=== PATIENT | female | born 1980 | race Caucasian/White ===

== ENCOUNTER 2023-05-11 06:30 | Day surgery (SDC) | payer OTHER ==
[2023-05-10 16:30] VITALS: BP 128/78
[~2023-05-11] VITALS: Ht 157.5 cm; Wt 103.6 kg
[~2023-05-11 06:30] MED LIST: DAILY VALUE1 EACH PO; IRON325 M1 PO; MELOXICAM15 MG PO; METHOCARBAMOL500 MG PO; NAPROXEN500 MG PO; OMEPRAZOLE40 MG PO; PHENTERMINE HCL15 MG PO; TENORMIN25 MG PO
[2023-05-11 06:50] VITALS: BP 131/98
[2023-05-11] MEDS ORDERED: HYDROCODON-ACE1 EA10 PO (08:04)
--- NOTE | 2023-05-11 08:12 | NUR ---
05/11/23 0812 Rubina Wills PT TO PACU AWAKE ON ROOM AIR. DENIES PAIN AND NAUSEA.
[2023-05-11 08:31] VITALS: BP 114/70
--- NOTE | 2023-05-14 07:16 | OR ---
[facility] [address] [place], [place] [address] Signed DATE OF OPERATION: 05/11/2023 SURGEON: Ene Wills MD PREOPERATIVE DIAGNOSIS: Carpal tunnel syndrome, right. POSTOPERATIVE DIAGNOSIS: Carpal tunnel syndrome, right. PROCEDURE PERFORMED: Carpal tunnel release, right. CIRCULATION REPRESENTATIVE: None. ANESTHESIA: Sivan block. TOURNIQUET TIME: 20 minutes. BRIEF HISTORY: Marilia is a 43-year-old female with progressive worsening pain and numbness in her hand. She had undergone nerve conduction studies, which confirmed carpal tunnel. Nonoperative treatment was ineffective and she wished to proceed with operative release. Risks, benefits, and alternatives were discussed and she understood, wished to proceed. DESCRIPTION OF PROCEDURE: Once consent was obtained, she was taken to the operating room. After adequate anesthesia, she was placed on the operating room table. All downside pressure points were well padded. The right arm was prepped and draped in a standard sterile fashion and the carpal tunnel was approached through a 1.5 cm incision in the distal wrist crease, it was carried down to the transverse carpal ligament under loupe magnification. The ligament was then dissected free of overlying soft tissue. It was released proximally a cm and distally to the distal extent. The complete release was confirmed using the Cleveland elevator. The wound was then copiously irrigated with normal saline, closed with 3-0 nylon. The volar wrist was injected with 7 mL of 0.25% plain Marcaine. Wound was then dressed with bacitracin, Adaptic, 4 x 8s, and gauze. She tolerated the procedure well. Electronically Signed By: ENE WILLS MD 05/14/23 0716 PATIENT NAME: MARILIA RICHARDS OPERATIVE REPORT DATE OF : 82 REPORT #: [id number] PHYSICIAN: ENE WILLS MD PCP: REESE MUÑOZ PAC REPORT IS CONFIDENTIAL AND NOT TO BE RELEASED WITHOUT AUTHORIZATION [facility] [address] [facility] [place], [place] [address] Signed All sponge, needle, and instrument counts were correct. Ene Wills MD BA/ZULYL /[id number] Copies: ~ Electronically Signed By: ENE WILLS MD 05/14/23 0716 PATIENT NAME: MARILIA RICHARDS OPERATIVE REPORT DATE OF : 82 REPORT #: [id number] PHYSICIAN: ENE WILLS MD PCP: REESE MUÑOZ PAC REPORT IS CONFIDENTIAL AND NOT TO BE RELEASED WITHOUT AUTHORIZATION
== END 2023-05-11 08:45 | disposition home or self-care (01) ==
LOC: DS 06:30 → OPS 06:30 → DS 07:00 → OPS 07:55 → DS 09:15 → OPS 09:30
PROVIDERS: ATTEND Specialist
PROC: 01N50ZZ Release Median Nerve, Open Approach (ICD-10-PCS; principal; 2023-05-11 07:55)
DX: G56.03 Carpal tunnel syndrome, bilateral upper limbs (principal); I10 Essential (primary) hypertension; K21.9 Gastro-esophageal reflux disease without esophagitis
CPT/HCPCS: 01810; J1885; J2250; J2704; J3490; J7121

== ENCOUNTER 2023-06-29 07:35 | Day surgery (SDC) | payer OTHER ==
[2023-06-28 11:19] VITALS: BP 145/89
[~2023-06-29] VITALS: Ht 157.5 cm; Wt 103.6 kg
[~2023-06-29 07:35] MED LIST changes: +HYDROCODON-ACE1 EA10 PO
[2023-06-29 07:53] VITALS: BP 116/96
--- NOTE | 2023-06-29 08:16 | NUR ---
PT REPORTS SHE DID NOT TAKE HER ATENOLOL SINCE SUNDAY SHE READ THE INSTRUCTIONS FOR SURGERY WRONG. PT TAKES THIS MEDICATION FOR RATE CONTROL. SARAH BETH VILLALTA CRNA NOTIFIED OF THIS. NEW ORDER RECEIVED.
--- NOTE | 2023-06-29 08:36 | NUR ---
PT PLACED ON THE CONTINUOUS PULSE OX AND BP TAKEN. PARAMETER WNL FOR LOPRESSOR ADMINISTRATION. PT LEFT ON CONTINUOUS PULSE OX. PT'S FATHER AT THE BEDSIDE. CALL LIGHT WITH PT.
[2023-06-29 08:40] VITALS: BP 113/69
--- NOTE | 2023-06-29 08:41 | NUR ---
PT REPORTS SHE IS NOT DIZZY AFTER MEDICATION ADMINISTRATION.
[2023-06-29 08:56] VITALS: BP 117/72
[2023-06-29] MEDS ORDERED: HYDROCODON-ACE1 EA10 PO (10:13)
--- NOTE | 2023-06-29 10:31 | NUR ---
06/29/23 Panfilo1 Rubina Wills 1017 PT TO PACU SLEEPING O2 ON VIA MASK, FOGGING NOTED IN MASK.
[2023-06-29 10:43] VITALS: BP 122/67
--- NOTE | 2023-06-29 10:47 | NUR ---
PT ARRIVES BACK TO DAY SURGERY ROOM #5 AWAKE ALTHOUGH DROWSY. PT REPORTS LEFT WRIST PAIN AND RATES IT A 5/10. PT WOULD LIKE SOME PAIN MEDICATION FOR THIS. PT PROVIDED APPLE SAUCE, CRACKERS, AND WATER. EDUCATED PT EAT SOMETHING FOR THE PAIN PILL. PT STATES UNDERSTANDING. BED IN THE LOWEST POSITION, BED RAIL UP X1, CALL LIGHT PROVIDED, PT'S FATHER AT THE BEDSIDE.
--- NOTE | 2023-06-29 11:34 | NUR ---
PT REPORTS THIS CARPAL TUNNEL RELEASE IS "MUCH DIFFERENT" THIS TIME WITHOUT HAVING THE NERVE BLOCK. PT STATES HER PAIN IS 3/10 AND THAT IT IS TOLERABLE FOR HER. SARAH BETH VILLALTA CRNA AND DR. WATSON NOTIFIED OF THIS. PT UP ON THE EDGE OF THE BED. PT REPORTS NO DIZZINESS OR NAUSEA. PT ABLE TO AMBULATE TO THE RESTROOM AND BACK TO BED. PT AGREEABLE WITH WANTING TO GO HOME. PT DRESSING HERSELF. TOLERATING WELL.
[2023-06-29 11:44] VITALS: BP 137/78
--- NOTE | 2023-06-29 11:50 | NUR ---
DC INSTRUCTIONS PROVIDED TO PT AND PT'S FATHER. ALL QUESTIONS ANSWERED. PT REPORTS PAIN A 3/10. STATES THIS IS TOLERABLE FOR HER. DENIES NAUSEA OR DIZZINESS. PT ABLE TO AMBULATE TO THE WHEELCHAIR. ICE PACKS PROVIDED FOR HOME. PT TAKEN TO THE FRONT OF THE HOSPITAL. PT ABLE TO GET INTO THE PASSENGER SIDE OF THE VEHICLE BY HERSELF. TOLERATED WELL. PT THANKFUL FOR HER CARE.
--- NOTE | 2023-07-02 07:02 | OR ---
[facility] [address] [place], [place] [address] Signed DATE OF OPERATION: 06/29/2023 SURGEON: Ene Wills MD PREOPERATIVE DIAGNOSIS: Carpal tunnel syndrome, left. POSTOPERATIVE DIAGNOSIS: Carpal tunnel syndrome, left. PROCEDURE PERFORMED: Left carpal tunnel release. CONSTRUCTION DRILLER: None. ANESTHESIA: General. TOURNIQUET TIME: 5 minutes. BRIEF HISTORY: Marilia is a 43-year-old female with bilateral carpal tunnel. She had undergone successful right release and wished to proceed with the left. Risks, benefits, and alternatives were discussed with her and she elected to proceed. DESCRIPTION OF PROCEDURE: Once consent was obtained, she was taken to the operating room. After adequate anesthesia, she was left on the day surgery bed. The hand table was brought in and the arm was placed in a well-padded proximal forearm tourniquet. The arm was then prepped and draped in a standard sterile fashion, exsanguinated using Esmarch bandage. Tourniquet inflated to 200 mmHg. Standard and transverse incision was made in the distal wrist crease carried through the skin and subcutaneous tissue. Under loupe magnification, soft tissue was dissected free off the palmar ligament and it was released proximally a cm and distally to the distal extent. This was carefully palpated using a Lincoln and complete release was ensured. The wound was then copiously irrigated with normal saline, closed with 3-0 nylon and injected with 7 mL of 0.25% plain Marcaine. The wound was then dressed with bacitracin, Adaptic, 4 x 8s, and gauze. She tolerated the Electronically Signed By: ENE WILLS MD 07/02/23 0702 PATIENT NAME: MARILIA RICHARDS OPERATIVE REPORT DATE OF : 82 REPORT #: [id number] PHYSICIAN: ENE WILLS MD PCP: REESE MUÑOZ PAC REPORT IS CONFIDENTIAL AND NOT TO BE RELEASED WITHOUT AUTHORIZATION [facility] [address] [facility] [place], [place] [address] Signed procedure well. All sponge, needle, and instrument counts were correct. Ene Wills MD BA/ZULYL /[id number] Copies: ~ Electronically Signed By: ENE WILLS MD 07/02/23 0702 PATIENT NAME: MARILIA RICHARDS OPERATIVE REPORT DATE OF : 82 REPORT #: [id number] PHYSICIAN: ENE WILLS MD PCP: REESE MUÑOZ PAC REPORT IS CONFIDENTIAL AND NOT TO BE RELEASED WITHOUT AUTHORIZATION
== END 2023-06-29 11:50 | disposition home or self-care (01) ==
LOC: OPS 07:35 → DS 07:35 → OPS 09:55
PROVIDERS: ATTEND Specialist
PROC: 01N50ZZ Release Median Nerve, Open Approach (ICD-10-PCS; principal; 2023-06-29 09:55)
DX: G56.03 Carpal tunnel syndrome, bilateral upper limbs (principal); I10 Essential (primary) hypertension; K21.9 Gastro-esophageal reflux disease without esophagitis; Z88.0 Allergy status to penicillin; Z88.2 Allergy status to sulfonamides; Z79.899 Other long term (current) drug therapy
CPT/HCPCS: 84703; J0131; J1100; J1885; J2001; J2405; J2704; J7121

== ENCOUNTER 2023-08-07 07:23 | Day surgery (SDC) | payer OTHER ==
[~2023-08-07] VITALS: Ht 157.5 cm; Wt 110.9 kg
[~2023-08-07 07:23] MED LIST changes: +COLLAGEN-VIT C1 EACH PO
[2023-08-07 07:44] VITALS: BP 112/60
[2023-08-07] MEDS ORDERED: TYLENOL325 MG PO (07:48)
--- NOTE | 2023-08-07 08:51 | NUR ---
08/07/23 0851 Gini Moralez 7926 PT ARRIVED TO PACU ON RA AND PT WAKES AND TALKING TO RN. PT DENIES CONCERNS. PLAN OF CARE DISCUSSED. PT EASILY FALLS BACK TO SLEEP.
[2023-08-07 09:01] VITALS: BP 95/58
--- NOTE | 2023-08-07 09:55 | OR ---
[facility] [address] [place], [place] [address] Signed DATE OF OPERATION: 08/07/2023 SURGEON: Radha Farley MD PREOPERATIVE DIAGNOSES: 1. Gastroesophageal reflux disease. 2. Anemia. 3. NSAIDs. POSTOPERATIVE DIAGNOSES: 1. Small hiatal hernia. 2. GE junction at 34 cm. 3. Mild distal gastritis. PROCEDURE: EGD with CLOtest and biopsies of the antrum at GE junction. ESTIMATED BLOOD LOSS: None. INDICATIONS: Marilia is a 43-year-old obese female, asked to see me for upper endoscopy. She spoke of acid reflux for many years. She said her acid reflux was terrible during the . She has also gained some weight in the last few years and that has not helped. She has been on meloxicam and Advil as well. She has increased the Prilosec to 40 mg once a day. She is also little anemic according to her progress notes. She is apparently going to give a Cologuard stool sample. She was asked to see me for upper endoscopy. In the office, I gave her a pamphlet on upper endoscopy. We had reviewed the nature of the test. There is risk including, but not limited to gas bloating, crampy abdominal pain, bleeding, perforation requiring surgery, and missed diagnosis. We also discussed the need for IV conscious sedation. She had expressed understanding and wished to proceed. DESCRIPTION OF PROCEDURE: Marilia was taken into our endoscopy suite and placed in the supine semi-recumbent position. The posterior oropharynx was anesthetized with Hurricaine spray. A bite block was utilized throughout the case. She was given 6 mg of Versed and 100 mcg of fentanyl to cover the case. The adult gastroscope was introduced and advanced out into the third portion of the duodenum. The duodenum and pyloric channel were unremarkable. She had very mild erythematous changes in the distal portion of the stomach. We went Electronically Signed By: RADHA FARLEY MD 08/07/23 0955 PATIENT NAME: MARILIA RICHARDS OPERATIVE REPORT DATE OF : 82 REPORT #: [id number] PHYSICIAN: RADHA FARLEY MD PCP: REESE MUÑOZ [facility] REPORT IS CONFIDENTIAL AND NOT TO BE RELEASED WITHOUT AUTHORIZATION [facility] [address] [place] [address] Signed ahead and took a biopsy of the antrum for CLOtest as well as pathologic review. There were no ulcerations. Upon retroflexion of the scope, I can see she has just a very tiny hiatal hernia with a little bit of her stomach coming on the one side. The scope was withdrawn up through the area of the GE junction, which was compliant without stricture. We could see the mildly disrupted Z-line at about 34 cm. There was no Wilks's mucosa. No distal esophagitis. We went ahead and took a biopsy along the edge of the Z-line. Her middle and upper esophagus were unremarkable. After this, the gas was suctioned out and the gastroscope removed. Marilia tolerated the procedure quite well. RECOMMENDATIONS: I will see Marilia back in my office in 7 to 14 days to review her results. Radha Farley MD ALB/MODL /[id number] cc: LADAN Slater MD Copies: REESE MUÑOZ ANDREW L MD ~ Electronically Signed By: RADHA FARLEY MD 08/07/23 0955 PATIENT NAME: MARILIA RICHARDS OPERATIVE REPORT DATE OF : 82 REPORT #: [id number] PHYSICIAN: RADHA FARLEY MD PCP: REESE MUÑOZ REPORT IS CONFIDENTIAL AND NOT TO BE RELEASED WITHOUT AUTHORIZATION
--- NOTE | 2023-08-10 14:56 | PATH ---
[facility] [address] [place], [place] [address] Signed THIS IS AN ADDENDUM REPORT SPECIMEN(S): A ANTRUM BIOPSY SPECIMEN(S): B GE JUNCTION BIOPSY SPECIMEN SOURCE: A. ANTRUM BIOPSY B. GE JUNCTION BIOPSY CLINICAL HISTORY: GERD. Post - Mild gastritis. FINAL PATHOLOGIC DIAGNOSIS: A. Stomach, antrum, biopsy: - Gastric antral mucosa with mild chronic inactive gastritis - Negative for Helicobacter pylori with HE stains, see comment B. Gastroesophageal junction, biopsy: - Squamoglandular mucosa with reactive epithelial changes; negative for intestinal metaplasia COMMENT: For part A, an immunohistochemical stain for Helicobacter pylori has been ordered and will be reported in an addendum. [facility] MICROSCOPIC EXAMINATION: Histologic sections of all submitted blocks are examined by light microscopy. These findings, together with the gross examination, support the pathologic diagnosis. GROSS DESCRIPTION: A. The specimen, labeled and designated "Artem Richards, " and designated on the requisition "stomach, antrum/pylorus biopsy," is received in formalin and consists of one gramajo soft tissue fragment measuring 0.8 cm, the specimen is submitted entirely in (A1). B. The specimen, labeled and designated "Artem Richards, " and designated on the requisition "esophagus, EG junction biopsy," is received in formalin and consists of one gramajo soft tissue fragment measuring 0.4 cm, the specimen is submitted entirely in (B1). MMA (under the direct supervision of a pathologist) The Gross Description was prepared using a voice recognition system. The report PATIENT NAME: MARILIA RICHARDS PATHOLOGY DATE OF : 82 REPORT #: [id number] PHYSICIAN: PAIGE BIANCHI PCP: REESE MUÑOZ PAC REPORT IS CONFIDENTIAL AND NOT TO BE RELEASED WITHOUT AUTHORIZATION [facility] [address] [place], [place] [address] Signed was reviewed for accuracy; however, sound-alike word errors, addition and/or deletions may occur. If there is any question about this report, please contact Client Services. ADDITIONAL NOTES: Immunohistochemical and/or in situ hybridization studies if performed in this case included appropriate positive controls that reacted as expected. This test was developed and its performance characteristics determined by [facility]. It has not been cleared or approved by the U.S. Food and Drug Administration. The FDA has determined that such clearance or approval is not necessary. This test is used for clinical purposes. It should not be regarded as investigational or for research. [facility] is certified under the Clinical Laboratory Improvement Amendments of 1988 (CLIA) as qualified to perform high complexity clinical laboratory testing. PERFORMING LABORATORY: Technical component was performed by [facility], [address] [place] [id number] (CLIA# [id number]). Professional interpretation was performed by [facility], [address] [place] [address] (CLIA#:[id number]). ADDITIONAL NOTES: Immunohistochemical and/or in situ hybridization studies if performed in this case included appropriate positive controls that reacted as expected. This test was developed and its performance characteristics determined by [facility]. It has not been cleared or approved by the U.S. Food and Drug Administration. The FDA has determined that such clearance or approval is not necessary. This test is used for clinical purposes. It should not be regarded as investigational or for research. [facility] is certified under the Clinical Laboratory Improvement Amendments of 1988 (CLIA) as qualified to perform high complexity clinical laboratory testing. Professional interpretation was performed by [facility] - [facility], [address] [place] [address] (CLIA#:[id number]). REASON FOR ADDENDUM: Results of additional testing ADDENDUM MICROSCOPIC EXAMINATION: PATIENT NAME: MARILIA RICHARDS PATHOLOGY DATE OF : 82 REPORT #: [id number] PHYSICIAN: PAIGE PATHOLOGY PCP: REESE MUÑOZ PAC REPORT IS CONFIDENTIAL AND NOT TO BE RELEASED WITHOUT AUTHORIZATION [facility] [address] [place], [place] [address] Signed Histologic sections of all submitted blocks (or IHC as applicable) are digitally scanned and examined. These findings, together with the gross examination, support the pathologic diagnosis. DIAGNOSIS SUMMARY: For part A, an immunohistochemical stain for Helicobacter pylori is performed and is negative. The above interpretation is unchanged. Diagnostician: Andrea Correa MD Pathologist Electronically Signed 08/10/2023 Copies: ~ PATIENT NAME: MARILIA RICHARDS PATHOLOGY DATE OF : 82 REPORT #: [id number] PHYSICIAN: PAIGE PATHOLOGY PCP: REESE MUÑOZ PAC REPORT IS CONFIDENTIAL AND NOT TO BE RELEASED WITHOUT AUTHORIZATION
== END 2023-08-07 09:12 | disposition home or self-care (01) ==
LOC: DS 07:23
PROVIDERS: ATTEND Colon & Rectal Surgery
PROC: 0DB68ZX Excision of Stomach, Via Natural or Artificial Opening Endoscopic, Diagnostic (ICD-10-PCS; 2023-08-07)
PROC: 0DB48ZX Excision of Esophagogastric Junction, Via Natural or Artificial Opening Endoscopic, Diagnostic (ICD-10-PCS; principal; 2023-08-07 08:15)
DX: K29.50 Unspecified chronic gastritis without bleeding (principal); K44.9 Diaphragmatic hernia without obstruction or gangrene; K22.9 Disease of esophagus, unspecified; K21.9 Gastro-esophageal reflux disease without esophagitis; D64.9 Anemia, unspecified; I10 Essential (primary) hypertension; E66.9 Obesity, unspecified; Z68.41 Body mass index [BMI] 40.0-44.9, adult; Z88.0 Allergy status to penicillin; Z88.1 Allergy status to other antibiotic agents; Z88.2 Allergy status to sulfonamides; Z79.899 Other long term (current) drug therapy
CPT/HCPCS: 36415; 84703; 87077; 88305; 88342; G0500; J2250; J3010; J7121

== ENCOUNTER 2023-11-28 06:55 | Day surgery (SDC) | payer OTHER ==
[~2023-11-28] VITALS: Ht 157.5 cm; Wt 103.6 kg
[~2023-11-28 06:55] MED LIST changes: +CYCLOBENZAPRINE10 MG PO; +DEXAMETHASONE SOD PHOS 4 MG/ML VIAL ONE; +FAMOTIDINE 20 MG/ 2 ML VIAL ONE; +KETOROLAC TROMETHAMINE 30 MG/ML VIAL ONE; +LACTATED RINGER'S 1,000 ML IV ONE; +LACTATED RINGER'S 1,000 ML IV SCH; +LIDOCAINE HCL 2% 20 ML MDV ONE; +METHYLPREDNISOLO4 M1 PO; +METOCLOPRAMIDE HCL 10 MG/2 ML SDV ONE; +MIDAZOLAM HCL 2 MG/2 ML VIAL ONE; +ONDANSETRON ODT8 MG PO; +Ropivacaine HCl 0.5% 30 ML VIAL ONE; +TYLENOL325 MG PO; +fentaNYL citrate 100 MCG/2 ML VIAL ONE; +ondansetron HCL 4 MG/2 ML VIAL ONE; +propofoL 200 MG/20 ML VIAL ONE
[2023-11-28] MEDS ORDERED: LIDOCAINE HCL 1% 5 ML SDV INJ ONE (07:00)
[2023-11-28] MEDS ORDERED: CLINDAMYCIN PHOSPHATE/D5W 600 MG/50 ML BAG IV SCH (07:00)
[2023-11-28] MEDS ORDERED: IBLOOD GLUCOSE TEST STRIP 1 EA TEST VI PRN ×2 (07:00→08:15)
[2023-11-28 07:02] VITALS: BP 124/71
[2023-11-28] MEDS ORDERED: propofoL 200 MG/20 ML VIAL ONE (07:32)
[2023-11-28] MEDS ORDERED: KETAMINE in NS 50 MG/5 ML SYR ONE (07:41)
[2023-11-28] MEDS ORDERED: fentaNYL citrate 50 MCG/ML SDV IV PRN (08:15)
[2023-11-28] MEDS ORDERED: ondansetron HCL 4 MG/2 ML VIAL IV PRN (08:15)
[2023-11-28] MEDS ORDERED: NALOXONE HCL 0.4 MG SYR IV PRN (08:15)
[2023-11-28] MEDS ORDERED: MORPHINE SULFATE 10 MG/ML VIAL IV PRN (08:15)
[2023-11-28] MEDS ORDERED: PROCHLORPERAZINE EDISYLATE 10 MG/2 ML VIAL IV PRN (08:15)
[2023-11-28] MEDS ORDERED: droPERidol 5 MG/2 ML VIAL IV PRN (08:15)
[2023-11-28] MEDS ORDERED: METOCLOPRAMIDE HCL 10 MG/2 ML SDV IV PRN (08:15)
[2023-11-28] MEDS ORDERED: ePHEDrine sulfate 50 MG/ML AMP ONE (08:17)
--- NOTE | 2023-11-28 08:40 | NUR ---
11/28/23 0840 AndreeaDasia LE 0831: PATIENT ARRIVES IN PACU UNRESPONSIVE. SHE HAS A NASAL AND ORAL AIRWAY IN PLACE. 0839: PATIENT WAKES TO COUNTY CORONER'S LOUD VOICE AND FIRM TOUCH. ORAL AIRWAY IS REMOVED. PATIENT RETURNS TO RESTING QUIETLY MOMENTARILY AND THEN IS REACHING FOR HER NOSE. NASAL AIRWAY IS REMOVED. PATIENT RETURNS TO RESTING QUIETLY WITH RESPIRATIONS EVEN AND UNLABORED WHEN UNDISTURBED.
[2023-11-28 09:16] VITALS: BP 111/62
--- NOTE | 2023-11-28 22:04 | EKG ---
[facility] [address] [place] [address] Signed Normal sinus rhythm Inferior infarct , age undetermined Abnormal ECG No previous ECGs available Confirmed by Kate Mcleod MD () on 11/28/2023 10:04:22 PM Electronically Signed By: KATE MCLEOD MD 11/28/232203 PATIENT NAME: MARILIA RICHARDS ANN Electrocardiogram DATE OF : 82 PHYSICIAN: KATE MCLEOD MD REPORT #: [id number] REPORT IS CONFIDENTIAL AND NOT TO BE RELEASED WITHOUT AUTHORIZATION
--- NOTE | 2023-11-30 12:14 | PATH ---
[facility] [address] [place], [place] [address] Signed SPECIMEN(S): A LEFT FOOT SPECIMEN SOURCE: A. LEFT FOOT CLINICAL HISTORY: Excision of mass, left foot. Neoplasm of uncertain origin. FINAL PATHOLOGIC DIAGNOSIS: Soft tissue, left foot: - Consistent with benign ganglion cyst. - No abscess, granuloma, or malignancy identified. [facility] MICROSCOPIC EXAMINATION: Histologic sections of all submitted blocks are examined by light microscopy. These findings, together with the gross examination, support the pathologic diagnosis. GROSS DESCRIPTION: The specimen, labeled and designated "Richards," and designated on the requisition "soft tissue mass left foot stitch draper distal," is received in formalin and consists of an intact cystic structure (4.5 x 1.7 x 1.4 cm) with a stitch marking the distal aspect. The specimen is inked blue and serially sectioned to reveal a white-gramajo cyst wall measuring up to 0.2 cm in thickness and containing translucent viscous material. The specimen is submitted entirely. Cassette Summary: (A1) distal aspect (A2) proximal aspect AC (under the direct supervision of a pathologist) The Gross Description was prepared using a voice recognition system. The report was reviewed for accuracy; however, sound-alike word errors, addition and/or deletions may occur. If there is any question about this report, please contact Client Services. ADDITIONAL NOTES: Immunohistochemical and/or in situ hybridization studies if performed in this case included appropriate positive controls that reacted as expected. This test was developed and its performance characteristics determined by [facility]. It has not been cleared or PATIENT NAME: MARILIA RICHARDS PATHOLOGY DATE OF : 82 REPORT #: [id number] PHYSICIAN: PAIGE BIANCHI PCP: REESE MUÑOZ PAC REPORT IS CONFIDENTIAL AND NOT TO BE RELEASED WITHOUT AUTHORIZATION [address], [place] [address] Signed approved by the U.S. Food and Drug Administration. The FDA has determined that such clearance or approval is not necessary. This test is used for clinical purposes. It should not be regarded as investigational or for research. [facility] is certified under the Clinical Laboratory Improvement Amendments of 1988 (CLIA) as qualified to perform high complexity clinical laboratory testing. PERFORMING LABORATORY: Technical component was performed by [facility], [address] [place] [id number] (CLIA# [id number]). Professional interpretation was performed by [facility], [address] [place] [id number] (CLIA#: [id number]). Diagnostician: Lorenzo Dixon MD Pathologist Electronically Signed 11/30/2023 Copies: ~ PATIENT NAME: MARILIA RICHARDS PATHOLOGY DATE OF : 82 REPORT #: [id number] PHYSICIAN: PAIGE PATHOLOGY PCP: REESE MUÑOZ PAC REPORT IS CONFIDENTIAL AND NOT TO BE RELEASED WITHOUT AUTHORIZATION
--- NOTE | 2023-11-30 13:49 | OR ---
[facility] [address] [place], [place] [address] Signed DATE OF OPERATION: 11/28/2023 SURGEON: Jaime Villagran DPM PREOPERATIVE DIAGNOSES: 1. Soft tissue mass, left foot. 2. Neoplasm of uncertain behavior, left foot. POSTOPERATIVE DIAGNOSIS: Soft tissue mass left foot, possible ganglion cyst. WINDOW SYSTEMS ADMINISTRATOR SURGEON: Elbert Hudson DPM ANESTHESIA: IV general with local block, left foot. COMBINATION WINDOW INSTALLER: Caleb Buchanan CRNA SPECIMEN TO PATHOLOGY: Soft tissue lesion excision, left foot. PROCEDURE: Excision of soft tissue mass, left foot. DESCRIPTION OF PROCEDURE: The patient was brought to the operating room and placed on the table in the supine position. Anesthesia Department administered IV sedation, after which a local block was given to the left foot using a total of 10 mL 1:1 mixture, 2% lidocaine plain and 0.5% ropivacaine plain. The left leg and foot were then prepped and draped in the usual sterile manner and an Esmarch was used for hemostasis. Attention was initially directed to the dorsal/lateral left foot, where a soft tissue mass was noted directly overlying the extensor tendon to the 5th digit and motion was noted to the lesion with motion to the 5th digit. An incision was made approximately 6 cm in the length, full thickness through the dermis, then deepened through subcutaneous tissue to the lesion, which was immediately evident within the surgical site using careful dissection and cautery as necessary for hemostasis. The soft tissues were reflected medially and laterally to Electronically Signed By: JAIME VILLAGRAN DPM 11/30/23 1349 PATIENT NAME: MARILIA RICHARDS OPERATIVE REPORT DATE OF : 82 REPORT #: [id number] PHYSICIAN: JAIME VILLAGRAN DPM PCP: REESE MUÑOZ PAC REPORT IS CONFIDENTIAL AND NOT TO BE RELEASED WITHOUT AUTHORIZATION [facility] [address] [place], [place] [address] Signed fully expose the lesion. The lesion appeared to be a fluid-filled cyst and at one point, part of the lesion was punctured and drained a clear thickened gelatinous material consistent with a ganglion cyst. The lesion was firmly attached to the dorsal aspect of the tendon sheath and dissecting the lesion free, removed the dorsal half of the tendon sheath throughout the length of the lesion. The stalk or source of the lesion appeared possibly to be at the proximal end, however, since this was attached to the tendon sheath along its entire length, this could have been anywhere along this point. With the lesion excised, a suture was placed through the distal end of the lesion as a marker and the lesion then submitted for pathology. The surgical site was irrigated with saline, then closed using 4-0 Vicryl for subcutaneous closure and skin ernesto for skin closure. INTRAOPERATIVE COMPLICATIONS: None. ESTIMATED BLOOD LOSS: Less than 5 mL. The patient tolerated the procedure and the anesthesia well and left the operating room with vital signs stable and vascular status intact to left foot as evidenced by hyperemia with removal of the Esmarch. Jaiem Villagran DPM DFB/MODL /[id number] Copies: ~ Electronically Signed By: JAIME VILLAGRAN DPM 11/30/23 1349 PATIENT NAME: MARILIA RICHARDS ANN OPERATIVE REPORT DATE OF : 82 REPORT #: [id number] PHYSICIAN: JAIME VILLAGRAN DPM PCP: REESE MUÑOZ PAC REPORT IS CONFIDENTIAL AND NOT TO BE RELEASED WITHOUT AUTHORIZATION
== END 2023-11-28 09:27 | disposition home or self-care (01) ==
LOC: DS 06:55
PROVIDERS: ATTEND Podiatrist Foot Surgery
PROC: 0JBR0ZZ Excision of Left Foot Subcutaneous Tissue and Fascia, Open Approach (ICD-10-PCS; principal; 2023-11-28 09:00)
DX: R22.42 Localized swelling, mass and lump, left lower limb (principal); E66.01 Morbid (severe) obesity due to excess calories; Z68.41 Body mass index [BMI] 40.0-44.9, adult; Z79.899 Other long term (current) drug therapy; Z88.0 Allergy status to penicillin; Z88.2 Allergy status to sulfonamides
CPT/HCPCS: 01470; 93005; 93010; J1100; J1885; J2250; J2405; J2704; J2765; J2795; J3010; J3490; J7121